=== PATIENT | female | born 1945 ===

== ENCOUNTER 2017-12-02 09:46 | Day surgery (SDC) | payer OTHER ==
[~2017-12-02 09:46] MED LIST: B-12500 MC1 SL; COREG CR10 MG PO; HYDROCHLOROTH12.5 M1 PO; LOSARTAN POTASS25 MG PO; SIMVASTATIN40 MG PO
[2017-12-02] MEDS ORDERED: KEFLEX250 MG PO (14:00)
[2017-12-02] MEDS ORDERED: ULTRACET PO (14:01)
== END 2017-12-02 16:50 | disposition home or self-care (01) ==
LOC: CIR.AMB 09:46
DX: N39.41 Urge incontinence (principal); N32.81 Overactive bladder
CPT/HCPCS: 64581; C1778

== ENCOUNTER 2017-12-16 06:25 | Day surgery (SDC) | payer OTHER ==
[~2017-12-16 06:25] MED LIST changes: +KEFLEX250 MG PO; +ULTRACET PO
== END 2017-12-16 13:00 | disposition home or self-care (01) ==
LOC: CIR.AMB 06:25
DX: N39.41 Urge incontinence (principal); N32.81 Overactive bladder
CPT/HCPCS: 64590; C1767